=== PATIENT | male | born 1980 | race Caucasian/White ===

== ENCOUNTER → 2021-05-12 10:50 | Outpatient (BNVA) | payer OTHER, SELFPAY | PROVIDERS: Visit Provider Registered Nurse | DX: Z02.1 Encounter for pre-employment examination (principal) | CPT/HCPCS: 80307 ==

== ENCOUNTER 2022-06-24 12:38 | Outpatient (CLI) | payer OTHER, SELFPAY ==
--- NOTE | 2022-06-24 12:57 | XR_ITS ---
WS: [id number] Exam: XR lumbar spine 2-3V* [id number] Date/Time of Exam: 06/24/2022 1:05 PM Reason For Exam: S39.012A - Strain of muscle, fascia and tendon of lower b... No fracture or dislocation noted. Early degenerative disc changes at L5-S1. Mild spondylosis. Posteri or elements are intact. No significant scoliosis. XR/XR lumbar spine 2-3V* [id number] IMPRESSION: 1. No fracture or malalignment. 2. Early degenerative disc change at L5-S1. Minimal spondylosis.
== END 2022-06-24 12:39 | disposition home or self-care (01) ==
PROVIDERS: PCP Nurse Practitioner Family; Visit Provider Nurse Practitioner Family
DX: S39.012A Strain of muscle, fascia and tendon of lower back, initial encounter (principal); X58.XXXA Exposure to other specified factors, initial encounter; M47.897 Other spondylosis, lumbosacral region
CPT/HCPCS: 72100